=== PATIENT | female | born 1975 | race African-American/Black ===

== ENCOUNTER 2017-03-29 14:45 | Emergency (ER) | payer SELFPAY ==
[~2017-03-29] VITALS: Ht 152.4 cm; Wt 70.0 kg
[~2017-03-29 14:45] MED LIST: HYDROCO/APAP1 T11 PO; PRILOSEC20 MG OR; TYLENOL500 MG OR; ZOFRAN ODT4 MG PO; ZOFRAN4 MG OR
[2017-03-29] MEDS ORDERED: FIORICET PO (15:57)
[2017-03-29 16:20] VITALS: BP 121/84
== END 2017-03-29 16:20 | disposition home or self-care (01) | DRG 103 ==
LOC: ED 14:45
DX: G43.909 Migraine, unspecified, not intractable, without status migrainosus (principal); F17.200 Nicotine dependence, unspecified, uncomplicated; K21.9 Gastro-esophageal reflux disease without esophagitis

== ENCOUNTER 2017-05-23 15:31 | Emergency (ER) | payer SELFPAY ==
[~2017-05-23] VITALS: Ht 152.4 cm; Wt 80.0 kg
[~2017-05-23 15:31] MED LIST changes: +FIORICET PO
[2017-05-23 18:04] LABS: HEMATOCRIT 38.8 % (37.0-47.0); HEMOGLOBIN 12.7 g/dl (12.0-16.0); IMMATURE GRANULOCYTES 0.4 % (0.0-1.0); MEAN CORPUSCULAR HGB 29.1 pG CALC (26.0-32.0); MEAN CORPUSCULAR HGB CONC 32.7 g/L CALC (32.0-36.0); NEUT# 4.64 thou/uL (2.00-7.15); RED BLOOD COUNT 4.36 mill/uL (4.20-5.60); RED CELL DISTRI WIDTH 13.3 % (11.5-15.5)
[2017-05-23 18:20] LABS: ALBUMIN 4.5 g/dL (3.2-5.0); ALKALINE PHOSPHATASE 78 u/l (38-126); ANION GAP 19 (6-22 (CALC)); BILIRUBIN, TOTAL 0.3 mg/dL (0.0-1.4); BUN 10 mg/dL (7-17); BUN/CREATININE RATIO 14 (12-20 (CALC)); CALCIUM 9.6 mg/dL (8.4-10.2); CARBON DIOXIDE 22 mmol/l (22-30); CHLORIDE 108 mmol/l (95-108); CREATININE 0.7 mg/dL (0.5-1.0); GFR > 60 ML/MIN (>=60 (CALC)); GFR FOR AFR.AMER. > 60 ML/MIN (>=60 (CALC)); GLUCOSE 74 mg/dL (65-105); POTASSIUM 4.1 mmol/l (3.5-5.1); SGOT/AST 18 u/l (14-36); SGPT/ALT 25 u/l (9-52); SODIUM 145 mmol/l (137-146); TOTAL PROTEIN 8.1 g/dL (6.3-8.2)
[2017-05-23] MEDS ORDERED: ULTRAM50 M1 PO (18:53)
[2017-05-23] MEDS ORDERED: ZOFRAN ODT4 MG PO (18:53)
[2017-05-23] MEDS ORDERED: CIPROFLOXACN500 MG PO (18:53)
[2017-05-23 19:36] VITALS: BP 127/79
== END 2017-05-23 19:34 | disposition home or self-care (01) | DRG 392 ==
LOC: ED 15:31
PROVIDERS: Emergency Medicine
DX: K52.9 Noninfective gastroenteritis and colitis, unspecified (principal); F17.210 Nicotine dependence, cigarettes, uncomplicated; K21.9 Gastro-esophageal reflux disease without esophagitis

== ENCOUNTER 2017-06-08 00:31 | Emergency (ER) | payer SELFPAY ==
[~2017-06-08] VITALS: Ht 152.4 cm; Wt 69.6 kg
[~2017-06-08 00:31] MED LIST changes: +CIPROFLOXACN500 MG PO; +ULTRAM50 M1 PO
[2017-06-08] MEDS ORDERED: KEFLEX500 MG PO (01:46)
[2017-06-08] MEDS ORDERED: PERCOCET 5/325M1 TAB PO (01:46)
[2017-06-08 02:05] VITALS: BP 123/80
== END 2017-06-08 02:05 | disposition home or self-care (01) | DRG 605 ==
LOC: ED 00:31
DX: S61.230A Puncture wound without foreign body of right index finger without damage to nail, initial encounter (principal); F17.210 Nicotine dependence, cigarettes, uncomplicated; K21.9 Gastro-esophageal reflux disease without esophagitis; W26.0XXA Contact with knife, initial encounter; Y93.G3 Activity, cooking and baking; Y92.009 Unspecified place in unspecified non-institutional (private) residence as the place of occurrence of the external cause

== ENCOUNTER 2017-10-29 08:23 | Emergency (ER) | payer SELFPAY ==
[~2017-10-29] VITALS: Ht 152.4 cm; Wt 70.0 kg
[~2017-10-29 08:23] MED LIST changes: +KEFLEX500 MG PO; +PERCOCET 5/325M1 TAB PO
[2017-10-29 09:08] LABS: URINE BILIRUBIN - DIPSTICK NEGATIVE (NEGATIVE); URINE BLOOD DIPSTICK LARGE (NEGATIVE); URINE CLARITY TURBID; URINE COLOR BLOODY; URINE GLUCOSE - DIPSTICK 250 mg/dL (NEGATIVE); URINE KETONE 15 mg/dL (NEGATIVE); URINE LEUK ESTERASE MODERATE (NEGATIVE); URINE NITRITE - DIPSTICK POSITIVE (Negative); URINE PH 6.5 (4.5-8.0); URINE PROTEIN - DIPSTICK >=300 mg/dL (NEG-TRACE); URINE UROBILINOGEN - DIPSTICK >=8.0 E.U./dL (0.2)
[2017-10-29 09:10] LABS: URINE RBC TNTC RBC/hpf (0-5); URINE SQUAMOUS EPITHELIAL CELL FEW EPI/hpf (0-FEW)
[2017-10-29 09:13] LABS: HEMATOCRIT 36.9 % (37.0-47.0); HEMOGLOBIN 11.4 g/dl (12.0-16.0); IMMATURE GRANULOCYTES 0.2 % (0.0-1.0); MEAN CELL VOLUME 84.2 fL CALC (80.0-100.0); MEAN CORPUSCULAR HGB CONC 30.9 g/L CALC (32.0-36.0); NEUT# 5.6 thou/uL (2.00-7.15); RED BLOOD COUNT 4.38 mill/uL (4.20-5.60); RED CELL DISTRI WIDTH 15.7 % (11.5-15.5)
[2017-10-29 09:22] LABS: BARBITURATES NEGATIVE (NEGATIVE); COCAINE POSITIVE (NEGATIVE); METHADONE NEGATIVE (NEGATIVE); TETRAHYDROCANNABIONOL POSITIVE (NEGATIVE); TRICYLIC ANTIDEPRESSANTS NEGATIVE (NEGATIVE)
[2017-10-29 09:23] LABS: OXCYCODONE NEGATIVE (NEGATIVE)
[2017-10-29 09:26] LABS: ALBUMIN 4.4 g/dL (3.2-5.0); ALKALINE PHOSPHATASE 84 u/l (38-126); ANION GAP 16 (6-22 (CALC)); BILIRUBIN, TOTAL 0.2 mg/dL (0.0-1.4); BUN 10 mg/dL (7-17); BUN/CREATININE RATIO 13 (12-20 (CALC)); CARBON DIOXIDE 23 mmol/l (22-30); CHLORIDE 108 mmol/l (95-108); CREATININE 0.8 mg/dL (0.5-1.0); GFR > 60 ML/MIN (>=60 (CALC)); GFR FOR AFR.AMER. > 60 ML/MIN (>=60 (CALC)); LIPASE 171 u/l (23-300); POTASSIUM 3.9 mmol/l (3.5-5.1); SGOT/AST 22 u/l (14-36); SGPT/ALT 24 u/l (9-52); SODIUM 143 mmol/l (137-146); TOTAL PROTEIN 7.4 g/dL (6.3-8.2)
[2017-10-29] MEDS ORDERED: MOTRIN400 MG PO (10:32)
[2017-10-29] MEDS ORDERED: CEPHALEXIN500 MG PO (10:32)
[2017-10-29 10:51] VITALS: BP 135/89
== END 2017-10-29 11:01 | disposition home or self-care (01) | DRG 690 ==
LOC: ED 08:23
PROVIDERS: Family Medicine
DX: N39.0 Urinary tract infection, site not specified (principal); F17.210 Nicotine dependence, cigarettes, uncomplicated; N94.6 Dysmenorrhea, unspecified; R10.32 Left lower quadrant pain
CPT/HCPCS: Q9967

== ENCOUNTER 2018-02-22 11:11 | Emergency (ER) | payer SELFPAY ==
[~2018-02-22] VITALS: Ht 152.4 cm; Wt 65.9 kg
[~2018-02-22 11:11] MED LIST changes: +CEPHALEXIN500 MG PO; +MOTRIN400 MG PO
[2018-02-22] MEDS ORDERED: CLEOCIN300 MG PO (11:42)
[2018-02-22] MEDS ORDERED: BACTRIM DS1 TAB PO (11:42)
[2018-02-22 11:45] LABS: URINE BILIRUBIN - DIPSTICK NEGATIVE (NEGATIVE); URINE BLOOD DIPSTICK NEGATIVE (NEGATIVE); URINE COLOR YELLOW; URINE GLUCOSE - DIPSTICK NEGATIVE (NEGATIVE); URINE KETONE NEGATIVE (NEGATIVE); URINE LEUK ESTERASE NEGATIVE (NEGATIVE); URINE NITRITE - DIPSTICK NEGATIVE (Negative); URINE PROTEIN - DIPSTICK NEGATIVE (NEG-TRACE); URINE UROBILINOGEN - DIPSTICK 0.2 E.U./dL (0.2)
[2018-02-22 11:52] LABS: URINE CLARITY CLEAR
[2018-02-22 12:00] VITALS: BP 136/90
== END 2018-02-22 12:04 | disposition home or self-care (01) | DRG 761 ==
LOC: ED 11:11
DX: T19.2XXA Foreign body in vulva and vagina, initial encounter (principal); F17.210 Nicotine dependence, cigarettes, uncomplicated; X58.XXXA Exposure to other specified factors, initial encounter

== ENCOUNTER 2018-11-07 17:53 | Emergency (ER) | payer SELFPAY ==
[~2018-11-07] VITALS: Ht 152.4 cm; Wt 75.0 kg
[~2018-11-07 17:53] MED LIST changes: +BACTRIM DS1 TAB PO; +CLEOCIN300 MG PO
[2018-11-07] MEDS ORDERED: FLEXERIL PO (18:21)
[2018-11-07] MEDS ORDERED: DICLOFENAC50 MG PO (18:21)
[2018-11-07 18:35] VITALS: BP 115/79
== END 2018-11-07 18:35 | disposition home or self-care (01) | DRG 93 ==
LOC: ED 17:53
DX: G89.29 Other chronic pain (principal); M54.5 Low back pain; F17.210 Nicotine dependence, cigarettes, uncomplicated

== ENCOUNTER 2018-11-26 18:41 | Emergency (ER) | payer SELFPAY ==
[~2018-11-26] VITALS: Ht 152.4 cm; Wt 76.8 kg
[~2018-11-26 18:41] MED LIST changes: +DICLOFENAC50 MG PO; +FLEXERIL PO
[2018-11-26] MEDS ORDERED: TORADOL PO (19:18)
[2018-11-26] MEDS ORDERED: NO HOME MEDS (19:54)
[2018-11-26 20:31] VITALS: BP 114/79
== END 2018-11-26 20:31 | disposition home or self-care (01) | DRG 563 ==
LOC: ED 18:41
DX: S39.012A Strain of muscle, fascia and tendon of lower back, initial encounter (principal); F17.200 Nicotine dependence, unspecified, uncomplicated; X50.0XXA Overexertion from strenuous movement or load, initial encounter; X50.9XXA Other and unspecified overexertion or strenuous movements or postures, initial encounter; Y93.E5 Activity, floor mopping and cleaning; Y92.009 Unspecified place in unspecified non-institutional (private) residence as the place of occurrence of the external cause

== ENCOUNTER 2019-02-03 11:01 | Emergency (ER) | payer SELFPAY ==
[~2019-02-03] VITALS: Ht 152.4 cm; Wt 75.0 kg
[~2019-02-03 11:01] MED LIST changes: +NO HOME MEDS; +TORADOL PO
[2019-02-03] MEDS ORDERED: ZOFRAN4 M1 PO (11:35)
[2019-02-03] MEDS ORDERED: TAM75CAP PO (11:35)
[2019-02-03 11:38] VITALS: BP 134/85
== END 2019-02-03 11:52 | disposition home or self-care (01) | DRG 153 ==
LOC: ED 11:01
DX: J11.1 Influenza due to unidentified influenza virus with other respiratory manifestations (principal); F17.210 Nicotine dependence, cigarettes, uncomplicated

== ENCOUNTER 2019-03-04 14:07 | Emergency (ER) | payer SELFPAY ==
[~2019-03-04] VITALS: Ht 152.4 cm; Wt 75.0 kg
[~2019-03-04 14:07] MED LIST changes: +TAM75CAP PO; +ZOFRAN4 M1 PO
[2019-03-04] MEDS ORDERED: PREDNISONE50 MG PO (14:31)
[2019-03-04] MEDS ORDERED: MOTRIN400 MG PO (14:31)
[2019-03-04] MEDS ORDERED: CYCLOBENZAPR5 MG PO (14:31)
[2019-03-04 15:05] VITALS: BP 117/82
== END 2019-03-04 15:05 | disposition home or self-care (01) | DRG 563 ==
LOC: ED 14:07
DX: S39.012A Strain of muscle, fascia and tendon of lower back, initial encounter (principal); M54.5 Low back pain; M79.605 Pain in left leg; V89.2XXS Person injured in unspecified motor-vehicle accident, traffic, sequela

== ENCOUNTER 2019-05-29 19:08 | Emergency (ER) | payer SELFPAY ==
[~2019-05-29] VITALS: Ht 152.4 cm; Wt 73.6 kg
[~2019-05-29 19:08] MED LIST changes: +CYCLOBENZAPR5 MG PO; +PREDNISONE50 MG PO
[2019-05-29] MEDS ORDERED: ORPHENADRINE100 MG PO (20:04)
[2019-05-29] MEDS ORDERED: TORADOL PO (20:04)
[2019-05-29] MEDS ORDERED: PREDNISONE50 MG PO (20:04)
[2019-05-29 20:30] VITALS: BP 112/68
== END 2019-05-29 20:30 | disposition home or self-care (01) | DRG 93 ==
LOC: ED 19:08
DX: G89.29 Other chronic pain (principal); M54.5 Low back pain; M79.604 Pain in right leg; V89.2XXS Person injured in unspecified motor-vehicle accident, traffic, sequela

== ENCOUNTER 2019-06-28 16:21 | Emergency (ER) | payer SELFPAY ==
[~2019-06-28] VITALS: Ht 152.4 cm; Wt 71.0 kg
[~2019-06-28 16:21] MED LIST changes: +ORPHENADRINE100 MG PO
[2019-06-28] MEDS ORDERED: MEDDOSEPAK PO (18:08)
[2019-06-28 18:15] VITALS: BP 131/74
== END 2019-06-28 18:15 | disposition home or self-care (01) | DRG 93 ==
LOC: ED 16:21
DX: G89.29 Other chronic pain (principal); M54.5 Low back pain; F17.210 Nicotine dependence, cigarettes, uncomplicated

== ENCOUNTER 2019-08-18 09:23 | Emergency (ER) | payer SELFPAY ==
[~2019-08-18] VITALS: Ht 152.4 cm; Wt 72.0 kg
[~2019-08-18 09:23] MED LIST changes: +MEDDOSEPAK PO
[2019-08-18] MEDS ORDERED: FLEXERIL5 M1 PO (09:58)
[2019-08-18 10:23] VITALS: BP 149/77
== END 2019-08-18 10:30 | disposition home or self-care (01) | DRG 552 ==
LOC: ED 09:23
DX: M54.41 Lumbago with sciatica, right side (principal)

== ENCOUNTER 2019-11-20 | Emergency (ER) | payer SELFPAY ==
[~2019-11-20] MED LIST changes: +FLEXERIL5 M1 PO
[2019-11-20 12:21] LABS: HEMATOCRIT 38.6 % (37.0-47.0); HEMOGLOBIN 12.1 g/dl (12.0-16.0); IMMATURE GRANULOCYTES 0.3 % (0.0-5.0); MEAN CELL VOLUME 89.6 fL CALC (80.0-100.0); MEAN CORPUSCULAR HGB 28.1 pG CALC (26.0-32.0); MEAN CORPUSCULAR HGB CONC 31.3 g/L CALC (32.0-36.0); NEUT# 12.19 thou/uL (2.00-7.15); RED BLOOD COUNT 4.31 mill/uL (4.20-5.60); RED CELL DISTRI WIDTH 13.7 % (11.5-15.5)
[2019-11-20 12:33] LABS: ALBUMIN 4.2 g/dL (3.2-5.0); ALKALINE PHOSPHATASE 91 u/l (38-126); ANION GAP 11 (6-22 (CALC)); BILIRUBIN, TOTAL 0.4 mg/dL (0.0-1.4); BUN 8 mg/dL (7-17); BUN/CREATININE RATIO 16 (12-20 (CALC)); CARBON DIOXIDE 23 mmol/l (22-30); CHLORIDE 107 mmol/l (95-108); CREATININE 0.5 mg/dL (0.5-1.0); GFR > 60 ML/MIN (>=60 (CALC)); GFR FOR AFR.AMER. > 60 ML/MIN (>=60 (CALC)); LIPASE 97 u/l (23-300); POTASSIUM 4.5 mmol/l (3.5-5.1); SGOT/AST 23 u/l (14-36); SODIUM 136 mmol/l (137-146); TOTAL PROTEIN 7.5 g/dL (6.3-8.2)
[2019-11-20 13:41] LABS: URINE BILIRUBIN - DIPSTICK NEGATIVE (NEGATIVE); URINE BLOOD DIPSTICK NEGATIVE (NEGATIVE); URINE COLOR YELLOW; URINE GLUCOSE - DIPSTICK NEGATIVE (NEGATIVE); URINE KETONE NEGATIVE (NEGATIVE); URINE LEUK ESTERASE NEGATIVE (NEGATIVE); URINE NITRITE - DIPSTICK NEGATIVE (Negative); URINE PH >=9.0 (4.5-8.0); URINE PROTEIN - DIPSTICK TRACE mg/dL (NEG-TRACE)
[2019-11-20 13:51] LABS: BARBITURATES NEGATIVE (NEGATIVE); COCAINE NEGATIVE (NEGATIVE); METHADONE NEGATIVE (NEGATIVE); OXCYCODONE NEGATIVE (NEGATIVE); TRICYLIC ANTIDEPRESSANTS NEGATIVE (NEGATIVE)
[2019-11-20 13:53] LABS: TETRAHYDROCANNABIONOL NEGATIVE (NEGATIVE)
== END 2019-11-20 14:12 | disposition home or self-care (01) | DRG 392 ==
DX: R10.32 Left lower quadrant pain (principal); F17.210 Nicotine dependence, cigarettes, uncomplicated
CPT/HCPCS: Q9967

== ENCOUNTER 2024-06-11 21:49 | Emergency (ER) | payer SELFPAY ==
[2024-06-11 23:33] VITALS: BP 0/0
== END 2024-06-11 22:30 | disposition left against medical advice (07) | DRG 951 ==
LOC: ED 21:49
DX: Z53.21 Procedure and treatment not carried out due to patient leaving prior to being seen by health care provider (principal)